=== PATIENT | male | born 1985 | race Caucasian/White ===

== ENCOUNTER 2016-12-11 17:44 | Emergency (ER) | payer SELFPAY ==
[~2016-12-11] VITALS: Ht 182.9 cm; Wt 79.4 kg
[2016-12-11] MEDS ORDERED: LIDOCAINE 1% HCL (LOCAL ANESTH.) INJ 20ML MDV IN ONE (20:00)
[2016-12-11 20:40] VITALS: BP 145/70
[2016-12-11] MEDS ORDERED: HYDROcodone-ACET 5/325MG TAB PO ONE (20:45)
[2016-12-11] MEDS ORDERED: BACITRACIN TOP OINT 1 UD PKG TOP ONE (21:23)
[2016-12-11] MEDS ORDERED: NEOMYCIN-BACITRACIN-POLYM 15GM TOP OINT TOP SCH (21:30)
== END 2016-12-11 22:07 | disposition home or self-care (01) ==
LOC: ER 17:48
PROC: 0QSQXZZ Reposition Right Toe Phalanx, External Approach (ICD-10-PCS; principal; 2016-12-11)
DX: S92.421A Displaced fracture of distal phalanx of right great toe, initial encounter for closed fracture (principal); S50.312A Abrasion of left elbow, initial encounter; S50.311A Abrasion of right elbow, initial encounter; W22.8XXA Striking against or struck by other objects, initial encounter; Y93.89 Activity, other specified; Y99.8 Other external cause status; Y92.89 Other specified places as the place of occurrence of the external cause
CPT/HCPCS: 28495; 72070; 73660; 99284; L3260; 26742